=== PATIENT | male | born 1990 | race African-American/Black ===

== ENCOUNTER → 2021-01-17 | Day surgery (SDC) | payer OTHER ==
[~2021-01-17] MED LIST: NOHOMEMEDICATIONS; OXYCODONE HCL 55 MG PO
--- NOTE | ~2021-01-17 | OP ---
[address] [address] OPERATIVE REPORT Name: RUSTY VELASCO Room: [facility]#: [id number] Admission: 01/17/21 Attend Phys: Gabino Butler DO Discharge: Date of : 89 Report #: [id number] THIS REPORT FOR: cc: Cristofer Tripp MD,Cristofer Butler,Gabino Marte DO ~ cc: Cristofer Tripp MD DATE OF SURGERY: 01/17/2021 This is Frank Ivey DO, PGY-5 is dictating on behalf of Dr. Gabino Butler. PREOPERATIVE DIAGNOSIS: Incarcerated epigastric hernia. POSTOPERATIVE DIAGNOSIS: Incarcerated epigastric hernia. SURGEON: Gabino Butler DO. TOASTER ELEMENT REPAIRER: SHERICE Perez. PROCEDURE PERFORMED: Epigastric hernia repair with mesh. ANESTHESIA: General. ESTIMATED BLOOD LOSS: 10 mL. SPECIMENS: Hernia sac. IMPLANT: 6.[address] [place] mesh. HISTORY OF PRESENT ILLNESS: The patient is a 30-year-old male who presented to the office complaining of epigastric bulge. On exam, he did have an incarcerated epigastric hernia. We discussed risks, benefits and alternatives of repair at length and he agreed to proceed with surgery. DESCRIPTION OF PROCEDURE: After consent was obtained, the patient was taken to the operating room and placed in the supine position. SCDs applied to bilateral lower extremities. The patient was safety belt into the bed. Two grams of Ancef given for surgical prophylaxis. General endotracheal anesthesia was administered without any complication. The patient's abdomen was prepped and draped in the standard sterile fashion. A 15 blade scalpel was used to make a vertical incision just above the umbilicus overlying the hernia. Electrocautery was used for hemostasis. Hernia sac was immediately encountered and this was circumferentially dissected down to the level of fascia. Once the fascia was encountered, hernia sac was scored at the level of the fascia and appeared to be incarcerated preperitoneal fat. This was transected and [place] [address] OPERATIVE REPORT Name: RUSTY VELASCO Room: [facility].#: [id number] Admission: 01/17/21 Attend Phys: Gabino Butler DO Discharge: Date of : 89 Report #: [id number] evaluation along with hernia sac. The rest of the hernia contents were reduced back into the abdomen. Finger sweep was performed to create a plane for mesh placement in the preperitoneal space. There did appear to be 2 small hernias just caudad to the original hernia. These hernias were again reduced back into the abdomen and at this point, a 6.[address] [place] mesh was placed into the abdomen covering all 3 small hernia defects. Once the mesh was in correct position of the preperitoneal space, the 0 Prolene sutures were used to close the overlying fascial defects, taking care to incorporate the mesh. Once the fascial defects were completely closed, there was no more hernia. A layered closure of subcutaneous tissue was performed with a 3-0 Vicryl and the skin was reapproximated with a running subcuticular 4-0 Monocryl. Sterile skin glue was applied. All needle, instrument and sponge counts were correct x 2 at the end of the case. The patient was then awoken from general anesthesia and transferred to PACU in stable condition. By: [id number] Estuardo Butler DO /alexa
== END | disposition home or self-care (01) ==
LOC: M.SUR 07:21
PROVIDERS: ATTEND Surgery
DX: K43.6 Other and unspecified ventral hernia with obstruction, without gangrene (principal); Z98.890 Other specified postprocedural states; Z79.899 Other long term (current) drug therapy; Z20.822 Contact with and (suspected) exposure to COVID-19